=== PATIENT | male | born 1965 | race Caucasian/White ===

== ENCOUNTER 2019-09-14 08:35 | Day surgery (SDC) | payer OTHER ==
[2019-09-13 15:49] VITALS: BMI 32.5
[2019-09-14 10:20] VITALS: TEMP 98.1
[2019-09-14 11:21] VITALS: BP 114/65; PULSE 56
== END 2019-09-14 11:23 | disposition home or self-care (01) ==
LOC: JASU-ENDO 08:35
PROVIDERS: ATTEND Internal Medicine Gastroenterology
PROC: 0DJD8ZZ Inspection of Lower Intestinal Tract, Via Natural or Artificial Opening Endoscopic (ICD-10-PCS; principal; 2019-09-14 10:00)
DX: Z12.11 Encounter for screening for malignant neoplasm of colon (principal); K64.8 Other hemorrhoids